=== PATIENT | male | born 1955 | race Caucasian/White ===

== ENCOUNTER 2021-05-14 06:04 | Day surgery (SDC) | payer MEDICAID ==
[2021-05-07 10:47] LABS: BASOPHILS % (AUTO) 0.7 % (0-1); EOSINOPHILS % (AUTO) 0.9 % (0-6); LYMPHOCYTES # (AUTO) 1.7 X10'3 (1.1-4.8); LYMPHOCYTES % (AUTO) 30.2 % (21-51); MEAN CORPUSCULAR HEMOGLOBIN 33.1 PG (27.0-31.0); MEAN CORPUSCULAR HGB CONC 34.2 g/dL (33.0-36.5); MEAN CORPUSCULAR VOLUME 96.5 FL (78-98); MEAN PLATELET VOLUME 6.5 FL (7.4-10.4); MONOCYTES # (AUTO) 0.7 X10'3 (0-0.9); MONOCYTES % (AUTO) 13.2 % (2-12); NEUTROPHILS # (AUTO) 3.1 X10'3 (1.8-7.7); PRE OP HEMATOCRIT 42.8 % (42.0-52.0); PRE OP HEMOGLOBIN 14.6 g/dL (14.0-17.9); PRE OP PLATELET COUNT 295 X10'3 (140-440); RED BLOOD COUNT 4.43 X10'6 (4.70-6.10); RED CELL DISTRIBUTION WIDTH 13.7 % (11.5-14.5)
[2021-05-07 11:01] LABS: PRE OP PROTIME 10.7 SECONDS (9.0-12.0)
[2021-05-07 11:02] LABS: ALBUMIN 3.9 G/DL (3.4-5.0); ALBUMIN/GLOBULIN RATIO 0.8 (1.1-1.5); ALKALINE PHOSPHATASE 92 IU/L (46-116); BLOOD UREA NITROGEN 10 MG/DL (7-18); CALCIUM 9.4 MG/DL (8.5-10.1); CHLORIDE 100 MMOL/L (99-107); CREATININE 0.83 MG/DL (0.60-1.10); PRE OP ALT 52 U/L (30-65); PRE OP ANION GAP 13 (8-16); PRE OP AST 44 U/L (10-37); PRE OP BILIRUB, TOTAL 0.5 MG/DL (0.0-1.0); PRE OP GLUCOSE 108 MG/DL (70-104); PRE OP POTASSIUM 4.3 MMOL/L (3.4-5.1); PRE OP SODIUM 136 MMOL/L (135-145); TOTAL CARBON DIOXIDE 23.2 MMOL/L (24-32); TOTAL PROTEIN 8.5 G/DL (6.4-8.2); eGFR > 90 ML/MIN
[2021-05-14] VITALS (12 sets, daily range): BP systolic 154–187; BP diastolic 95–108
[~2021-05-14] VITALS: Ht 175.3 cm; Wt 105.2 kg
[~2021-05-14 06:04] MED LIST: GABA-532 PO; IBUP-1984 PO; LISI40TA13 PO; cefazolin/dext.iso 2gm/50ml IV ONE; famotidine 20mg tablet PO ONE; ringers solution, lacted 1,000 ML IV SCH
[2021-05-14] MEDS ORDERED: BUPIVAcaine 0.5% inj/PF 30 ML ONE (06:18)
[2021-05-14] MEDS ORDERED: propofol inj 20 ML IV ONE (08:53)
[2021-05-14] MEDS ORDERED: midazolam 1 mg/ML 2ml injection ONE (08:53)
[2021-05-14] MEDS ORDERED: rocuronium 10mg/ml inj IV ONE (08:53)
[2021-05-14] MEDS ORDERED: FENTANYL CITRATE/PF 50 MCG/1 ML VIAL ONE (08:53)
[2021-05-14] MEDS ORDERED: sevoflurane 250ml liquid IH ONE (08:56)
[2021-05-14] MEDS ORDERED: morphine 2 MG/ML inj. syringe IV PRN (09:45)
[2021-05-14] MEDS ORDERED: ringers solution, lacted 1,000 ML IV SCH (09:45)
[2021-05-14] MEDS ORDERED: meperidine/PF 25mg/ml syringe IV PRN ×3 (09:45)
[2021-05-14] MEDS ORDERED: morphine 4 MG/ML inj SYRINge IV PRN (09:45)
[2021-05-14] MEDS ORDERED: ondansetron/PF 4mg/2ml inj IV PRN (09:45)
[2021-05-14] MEDS ORDERED: proCHLORperazine 10 MG/2 ml inj IV PRN (09:45)
[2021-05-14] MEDS ORDERED: neostigmine methylsulfate 1 MG/ML 10ml vial ONE (09:59)
[2021-05-14] MEDS ORDERED: glycopyrrolate 0.2mg/ml inj ONE (10:00)
--- NOTE | 2021-05-14 10:10 | NUR ---
Received from OR via [facility], accompanied by Anesthesiologist DR HARRIS and report given by Anesthesiolgist. PT PRESENT WITH PIV 20G LEFT WRIST, RIGHT SLOBOW DRESSING CLEAN DRY AND INTACT, VSS. Addendum: 05/14/21 at 1032 by Shannan Munoz RN, RN Amended: Links added.
--- NOTE | 2021-05-14 11:50 | NUR ---
PATIENT DISCHARGED FROM PACU IN STABLE CONDITION AFTER WRITTEN AND VERBAL DISCHARGE INSTRUCTIONS GIVEN. PATIENT GAVE VERBAL UNDERSTANDING OF INSTRUCTIONS GIVEN. PATIENT LEFT FACILITY VIA WHEELCHAIR WITH RN. PT ADVISED TO TAKE BP MEDICATION WHEN PT GETS HOME. Addendum: 05/14/21 at 1219 by Shannan Munoz RN, RN Amended: Links added.
== END 2021-05-14 11:50 | disposition home or self-care (01) ==
LOC: PAS 06:04
PROVIDERS: ATTEND Orthopaedic Surgery Hand Surgery
DX: M25.521 Pain in right elbow (principal); M24.021 Loose body in right elbow; M19.021 Primary osteoarthritis, right elbow; F41.9 Anxiety disorder, unspecified; I10 Essential (primary) hypertension; K21.9 Gastro-esophageal reflux disease without esophagitis; E78.5 Hyperlipidemia, unspecified; M19.011 Primary osteoarthritis, right shoulder; M16.12 Unilateral primary osteoarthritis, left hip; F17.210 Nicotine dependence, cigarettes, uncomplicated; E66.8 Other obesity; Z68.34 Body mass index [BMI] 34.0-34.9, adult; G47.30 Sleep apnea, unspecified; G89.29 Other chronic pain; Z20.822 Contact with and (suspected) exposure to COVID-19; Z79.899 Other long term (current) drug therapy; Z98.890 Other specified postprocedural states; Z72.89 Other problems related to lifestyle; Z79.01 Long term (current) use of anticoagulants
CPT/HCPCS: 29834; 29837; 36415; 80053; 82948; 85025; 85610; 85730; 93005; J0690; J2250; J2704; J2710; J3010; J3490; J7120; S0020; U0003; U0005; Z7506; Z7508; Z7512; A4215; A4355; A4618; A6449; A7000

== ENCOUNTER 2022-11-17 20:08 | Emergency (ER) | payer BC, MEDICAID ==
[~2022-11-17] VITALS: Ht 175.3 cm; Wt 96.0 kg
[~2022-11-17 20:08] MED LIST changes: -cefazolin/dext.iso 2gm/50ml IV ONE; -famotidine 20mg tablet PO ONE; -ringers solution, lacted 1,000 ML IV SCH
--- NOTE | 2022-11-17 22:59 | NUR ---
PL[employer] W[employer] CHIEF PERFORMING WOUND CARE ON PATIENT, PATIENT TOLERATING WELL.
[2022-11-17] MEDS ORDERED: TETanus/Pertussis (Acell)/Diphther VAC/PF (Tdap-Adult) 0.5ml syringe IMVAC ONE (23:10)
[2022-11-17] MEDS ORDERED: LIDOcaine 1% 30ml preserv. free vial IJ ONE (23:10)
[2022-11-17 23:45] VITALS: BP 122/71; PULSE 81; RESP 17; TEMP 98.3; O2SAT 95
== END 2022-11-18 00:05 | disposition home or self-care (01) ==
LOC: ER 20:09
DX: S01.21XA Laceration without foreign body of nose, initial encounter (principal); S09.90XA Unspecified injury of head, initial encounter; I10 Essential (primary) hypertension; Z79.899 Other long term (current) drug therapy; W19.XXXA Unspecified fall, initial encounter; Y93.89 Activity, other specified; Y92.89 Other specified places as the place of occurrence of the external cause; Y99.8 Other external cause status
CPT/HCPCS: 12011; 70450; 72125; 90471; 90715; 99285; J3490; J7030; A6449

== ENCOUNTER 2022-11-22 10:07 | Emergency (ER) | payer BC, MEDICAID ==
[~2022-11-22] VITALS: Ht 175.3 cm; Wt 99.6 kg
[2022-11-22 10:09] VITALS: BP 150/84; PULSE 89; RESP 16; TEMP 98.9; O2SAT 98
== END 2022-11-22 11:12 | disposition home or self-care (01) ==
LOC: ER 10:08
DX: Z48.02 Encounter for removal of sutures (principal); I10 Essential (primary) hypertension; Z79.899 Other long term (current) drug therapy
CPT/HCPCS: 99281